=== PATIENT | male | born 1940 | race Caucasian/White ===

== ENCOUNTER 2023-01-22 10:01 | Day surgery (SDC) | payer OTHER, BC ==
[2023-01-19 10:26] LABS: Absolute Lymphocytes (CBC) 1.4 K/uL (0.7-4.9); Hematocrit 43.9 % (39.6-49.0); Lymphocytes % 27.2 % (15.3-44.8); MCV 94.2 fL (80-100); MPV 7.8 fL (7.6-11.3); RBC Red Blood Cell Count 4.66 M/uL (4.33-5.43)
[2023-01-19 10:43] LABS: Potassium 4.5 mmol/L (3.5-5.1)
--- NOTE | 2023-01-19 11:37 | RAD REPORT ---
EXAM DESCRIPTION: RAD - Chest Pa And Lat (2 Views) - 01/19/2023 10:18 am CLINICAL HISTORY: Pre op pending inguinal hernia repair COMPARISON: Chest Pa And Lat (2 Views) dated 04/01/2021; Chest Pa And Lat (2 Views) dated 03/24/2020 FINDINGS: Lines: None. Lungs: No evidence of edema or pneumonia. Pleural: No significant pleural effusions or pneumothorax. Cardiac: The heart size is within normal limits. Mediastinum: Within normal limits. Bones: No acute fractures. Bridging osteophytes in the spine. Other: None IMPRESSION: No acute cardiopulmonary disease.
--- NOTE | 2023-01-19 13:14 | EKG ---
Test Date: 2023-01-19 Test Time: 09:53:06 Electronic Equipment Repairer: DAT MEASUREMENT RESULTS: Intervals: Rate: 41 MA: 148 QRSD: 84 QT: 464 QTc: 382 [place]: P: 74 MA: 148 QRS: 68 T: 69 INTERPRETIVE STATEMENTS: Marked sinus bradycardia Abnormal ECG No previous ECG available for comparison Electronically Signed On 01-19-23 13:13:57 HOME HEALTH ATTENDANT by Lj Smith
[2023-01-22] MEDS ORDERED: Ringers Lactate 1,000 ML IV ONE (10:24)
[2023-01-22] MEDS ORDERED: propofoL 200 MG/20 ML VIAL IV ONE (10:26)
[2023-01-22] MEDS ORDERED: ONDANSETRON 4 MG/2 ML VIAL ONE (10:27)
[2023-01-22] MEDS ORDERED: ROCURONIUM 50 MG/5 ML VIAL IV ONE (10:27)
[2023-01-22] MEDS ORDERED: LIDOCAINE 2% MPF 5 ML VIAL ONE (10:27)
[2023-01-22] MEDS ORDERED: FENTANYL CITR 100 MCG/2 ML ONE (10:27)
[2023-01-22] MEDS: CEFAZOLIN SODIUM 1 GM/VIAL ONE ×2 (11:36→12:00)
[2023-01-22] MEDS ORDERED: GLYCOPYRROLATE 0.2 MG/ML SYR ONE (11:53)
[2023-01-22] MEDS ORDERED: EPHEDRINE SULF 50 MG/ML VIAL ONE (12:03)
[2023-01-22] MEDS ORDERED: KETOROLAC 30 MG/ML INJ ONE (12:48)
[2023-01-22] MEDS ORDERED: Mastisol Adhesive Liq ONE (12:50)
--- NOTE | 2023-01-22 13:38 | P.BOP ---
Preoperative diagnosis: Reducible tender right inguinal hernia Postoperative diagnosis: same Primary procedure: Laparoscopic repair of Reducible tender right inguinal hernia Supervisor Lamp Shades: Aleyda Hameed) Estimated blood loss: <10cc Specimen: none Findings: as above Anesthesia: General Complications: None Transferred to: Recovery Room Condition: Good
[2023-01-22] MEDS ORDERED: TAMSULOSIN 0.4 MG SR CAP PO ONE (14:15)
[2023-01-22] MEDS ORDERED: HYDROCODONE/APAP 7.5/325 MG TAB ONE (15:10)
[2023-01-22 15:35] VITALS: BP 131/63; O2SAT 100
[2023-01-22 15:36] VITALS: TEMP 97
== END 2023-01-22 15:25 | disposition home or self-care (01) ==
LOC: OR 10:01
PROVIDERS: ATTEND Surgery
PROC: 0YQ54ZZ Repair Right Inguinal Region, Percutaneous Endoscopic Approach (ICD-10-PCS; principal; 2023-01-22 12:00)
DX: K40.90 Unilateral inguinal hernia, without obstruction or gangrene, not specified as recurrent (principal); I51.9 Heart disease, unspecified
CPT/HCPCS: 36415; 71046; 80048; 85025; 93005; J0690; J2001; J2405; J2704; J3010; J7120

== ENCOUNTER 2023-09-15 12:01 | Emergency (ER) | payer OTHER, BC ==
--- OUTSIDE RECORDS SUMMARY | 2023-09-15 12:11 | XMS REPORT | Continuity of Care Document ---
:1940 Author Organization [facility] t Address [address] [place] [address]. [address] [place] [address] Care Team Providers Name Role Phone [phone] Primary Care Physician Unavailable ITZEL BUSTILLOS Attending Clinician Unavailable Gerda Prieto MD Attending Clinician KAYLEE CONTRERAS Attending Clinician Unavailable Kaylee Contreras MD Attending Clinician Oni Castellanos MD Attending Clinician RADIOLOGY Attending Clinician Unavailable PEPE PAGE Attending Clinician Unavailable Pepe Page MD Attending Clinician Sommer Crabtree CRNA Attending Clinician Mickie Roberts MD Attending Clinician Only, Adc Test Attending Clinician Unavailable Doctor Unassigned, [place] Walk Attending Clinician Unavailable VITO LANDAVERDE Attending Clinician Unavailable LISS MOODY Attending Clinician Unavailable EMMANUEL DICK Attending Clinician Unavailable ONI CASTELLANOS Admitting Clinician Unavailable PEPE PAGE Admitting Clinician Unavailable Pepe Page MD Admitting Clinician Payers Payer Name Policy Type Policy Number Effective Date Expiration Date S ource MEDICARE PART A AND [id number] 2006 B 00:00:00 BCBS NON CONTRACTED [id number] 2017 00:00:00 MEDICARE PART A \T\ [id number] 2006 B 00:00:00 BCBS TRADITIONAL [id number] 2017 00:00:00 Problems Condition Condition Condition Status Onset Resolution Last Treating Co mments Source Name Details Category Date Date Treatment Clinician Date Meralgia Meralgia Disease Active 2019-11 Metho di parestheti parestheti [address] [facility] of 00:00: Hospita right side right side 00 l Angina Angina Disease Active 2018-11 Methodi decubitus decubitus 2- st 00:00: Hospita 00 l Hyperlipid Hyperlipid Disease Active M ethodi emia LDL emia LDL 4- st goal <70 goal <70 00:00: Hospit a 00 l Paroxysmal Paroxysmal Disease Active M ethodi atrial atrial 4-29 st fibrillati fibrillati 00:00: Ho spita on on 00 l TIA TIA Disease Active Methodi (transient (transient 4-29 st ischemic ischemic 00:00: Hospit a attack) attack) 00 l No known No known Disease Unive rs active active ity of problems problems [facility] Branch Allergies, Adverse Reactions, Alerts Allergy Allergy Status Severity Reaction(s) Onset Inactive Treating Comm ents Source Name Type Date Date Clinician TRAMADOL DRUG Active Low Rash 2018-11 MD INGREDI 2-10 Anderso 00:00: n 00 Tramadol Propensi Active Rash 2018-11 Method i ty to 2-10 st adverse 00:00: Hospita reaction 00 l s to drug TRAMADOL DRUG Active Low Rash 2018-11 MD INGREDI 2-10 Anderso 00:00: n 00 TRAMADOL DRUG Active Low Rash 2018- MD INGREDI 2-10 Anderso 00:00: n 00 TRAMADOL DRUG Active Low Rash 2018- MD INGREDI 2-10 Anderso 00:00: n 00 TRAMADOL DRUG Active Low Rash 2018- MD INGREDI 2-10 Anderso 00:00: n 00 TRAMADOL DRUG Active Low Rash 2018- MD INGREDI 2-10 Anderso 00:00: n 00 TRAMADOL DRUG Active Low Rash 2018- MD INGREDI 2-10 Anderso 00:00: n 00 TRAMADOL DRUG Active Low Rash 2019-1 MD INGREDI 2-10 Anderso 00:00: n 00 TRAMADOL DRUG Active Low Rash 2019-1 MD INGREDI 2-10 Anderso 00:00: n 00 TRAMADOL DRUG Active Low Rash 2019-1 MD INGREDI 2-10 Anderso 00:00: n 00 TRAMADOL DRUG Active Low Rash 2019-1 MD INGREDI 2-10 Anderso 00:00: n 00 HYDROCOD DRUG Active Med Anxiety 2016-0 Univers ONE-ACET 5-17 ity of AMINOPHE 00:00: [place] N 00 Medical Branch Hydrocod Propensi Active Anxiety 2016-0 Unive rs one-Acet ty to 5-17 ity of aminophe adverse 00:00: [place] n reaction 00 Medical s Branch Hydrocod Propensi Active Anxiety 2016-0 Metho di one-Acet ty to 5-17 st aminophe adverse 00:00: Hospita n reaction 00 l s to drug HYDROCOD DRUG Active Med Nausea 2016-0 MD ONE-ACET 5-17 Anderso AMINOPHE 00:00: n N 00 HYDROCOD DRUG Active Med Nausea 2016-0 MD ONE-ACET 5-17 Anderso AMINOPHE 00:00: n N 00 HYDROCOD DRUG Active Med Nausea 2016-0 MD ONE-ACET 5-17 Anderso AMINOPHE 00:00: n N 00 HYDROCOD DRUG Active Med Nausea 2016-0 MD ONE-ACET 5-17 Anderso AMINOPHE 00:00: n N 00 HYDROCOD DRUG Active Med Nausea 2016-0 MD ONE-ACET 5-17 Anderso AMINOPHE 00:00: n N 00 HYDROCOD DRUG Active Med Nausea 2016-0 MD ONE-ACET 5-17 Anderso AMINOPHE 00:00: n N 00 HYDROCOD DRUG Active Med Nausea 2016-0 MD ONE-ACET 5-17 Anderso AMINOPHE 00:00: n N 00 HYDROCOD DRUG Active Med Nausea 2016-0 MD ONE-ACET 5-17 Anderso AMINOPHE 00:00: n N 00 HYDROCOD DRUG Active Med Nausea 2016-0 MD ONE-ACET 5-17 Anderso AMINOPHE 00:00: n N 00 HYDROCOD DRUG Active Med Nausea 2016-0 MD ONE-ACET 5-17 Anderso AMINOPHE 00:00: n N 00 HYDROCOD DRUG Active Med Nausea 2016-0 MD ONE-ACET 5-17 Anderso AMINOBIN 00:00: n N 00 Family History Family Member Diagnosis Comments Start Date Stop Date Source Natural father Diabetes [facility] Natural father Aneurysm [facility] Natural mother Heart failure [facility] Social History Social Habit Start Date Stop Date Quantity Comments Source History of tobacco Smokes tobacco Un iversity of use daily [facility] Sexual orientation Method ist Hospital Exposure to 2022-10-29 2022-11-08 Not sure University SARS-CoV-2 (event) 00:00:00 13:41:00 [facility] Alcohol intake 2022-09-19 2022-09-19 Current Islam 00:00:00 00:00:00 non-drinker of Hospital alcohol (finding) History of Social 2022-09-19 2022-09-[address] function 00:00:00 00:00:00 Hospital Tobacco use and 2019-01-28 2019-01-28 Smokeless Islam exposure 00:00:00 00:00:00 tobacco non-user Hospital Sex Ass[birth year] Islam 00:00:00 00:00:00 Hospital Smoking Status Start Date Stop Date Source Smokes tobacco daily 2022-09-07 00:00:00 Univers ity of [facility] Never smoked tobacco Islam H ospital Medications Ordered Filled Start Stop Current Ordering Indication Dosage Frequency Signature Comments Components Source Medication Medication Date Date Medication? Clinician (SIG) Name Name Mendezsara 10 Yes TAKE ONE Met hodi mg tablet 2-[address] 00:00: MOUTH Hospita 00 DAILY l rosuvastati 2021-11 Yes TAKE ONE Me thodi n (CRESTOR) 1-[address] 10 mg 00:00: MOUTH Hospita tablet 00 EVERY l NIGHT AT BEDTIME acetaminoph 2021-11 Yes 1{tbl} Take 1 Me thodi en (TYLENOL 1-[address] ARTHRITIS 08:51: mouth as Hosp vilma PAIN ORAL) 12 needed. l methylPREDN 2021-11 Yes [id number] 84mg Take 21 Univers ISolone 0-27 tablets by ity of (MEDROL, 00:00: mouth [place] HARDIK,) 4 mg 00 SEE-INSTRU [facility] follow package directions methylPREDN 2022-1 Yes [id number] 84mg Take 21 Univers ISolone 0-27 tablets by ity of (MEDROL, 00:00: mouth [place] HARDIK,) 4 mg 00 SEE-INSTRU Med ical tablets CTIONS. Branch follow package directions methylPREDN 2021-11 Yes [id number] 84mg Take 21 Univers ISolone 0-27 tablets by ity of (MEDROL, 00:00: mouth [place] HARDIK,) 4 mg 00 SEE-INSTRU Med ical tablets CTIONS. Branch follow package directions methylPREDN 2021-11 Yes [id number] 84mg Take 21 Univers ISolone 0-27 tablets by ity of (MEDROL, 00:00: mouth [place] HARDIK,) 4 mg 00 SEE-INSTRU Med ical tablets CTIONS. Branch follow package directions methylPREDN 2021-11 Yes [id number] 84mg Take 21 Univers ISolone 0-27 tablets by ity of (MEDROL, 00:00: mouth [place] HARDIK,) 4 mg 00 SEE-INSTRU Med ical tablets CTIONS. Branch follow package directions methylPREDN 2021-11 Yes [id number] 84mg Take 21 Univers ISolone 0-27 tablets by ity of (MEDROL, 00:00: mouth [place] HARDIK,) 4 mg 00 SEE-INSTRU Med ical tablets CTIONS. Branch follow package directions ePHEDrine 2021- No Slow IV Univ ers 25 mg/5 mL 05-24 Push, ONCE it y of (5 mg/mL) 15:43: 15:56 INTRA [place] syringe 00 :43 PROCEDURE, Medica l Starting Branch on Sun05/24/22 at 1043, Until Sun05/24/22 at 1056, Routine, Intra-op propofoL IV 2021- No Intravenou Univers infusion 05-24 s, ONCE ity of 15:36: 15:56 INTRA [place] 00 :43 PROCEDURE, Medical Starting Branch on Sun05/24/22 at 1036, Until Sun05/24/22 at 1056, Routine, Intra-op glycopyrrol 2021- No Intravenou Univers ate 05-24 s, ONCE ity of (ROBINUL) 15:35: 15:56 INTRA [place] injection 00 :43 PROCEDURE, Medi meg Starting Branch on Sun05/24/22 at 1035, Until Sun05/24/22 at 1056, Routine, Intra-op lidocaine 2021- No Intravenou U nivers 1% 05-24 s, ONCE ity of (XYLOCAINE) 15:32: 15:56 [place]TRA [place] 100 mg/10 00 :43 PROCEDURE, Medi meg mL (1 %) Starting Branch injection on Sun05/24/22 at 1032, Until Sun05/24/22 at 1056, Routine, Intra-op lactated 2021- No IV Univers ringers IV 05-24 Infusion, ity of infusion 15:29: 15:56 [place] :[place] PRN, Medical Starting Branch on Sun05/24/22 at 1029, Until Sun05/24/22 at 1056, Routine, Intra-op water for 2021- No PRN, Univers irrigation 05-24 Starting ity of irrigation 14:58: 15:59 [place] solution 00 :00 05/24/22 at Medic al 0958, Branch Until Sun05/24/22 at 1059, Routine, Intra-op simethicone 2021- No PRN, Unive rs (GAS RELIEF 05-24 Starting ity of (SIMETHICON 14:57: 15:59 on Sun [place] as E)) 40 00 :00 05/24/22 at Medical mg/0.6 mL 0957, Branch drops Until Sun05/24/22 at 1059, Routine, Intra-op lactated 2021- No 1000mL at 42 Unive rs ringers IV 05-24 mL/hr, ity of infusion 14:30: 15:01 1,000 mL, [place] as 1,000 mL 00 :00 IV Medical Infusion, Branch ONCE, 1 dose, On Sun05/24/22 at 0930, Routine, DSU Pre-op lactated 2021- No 1000mL at 42 Unive rs ringers IV 05-24 mL/hr, ity of infusion 14:30: 15:01 1,000 mL, [place] as 1,000 mL 00 :00 IV Medical Infusion, Branch ONCE, 1 dose, On Sun05/24/22 at 0930, Routine, DSU Pre-op rosuvastati 2022-0 Yes 10mg Take 10 mg Univers n 10 mg 7-13 by mouth ity of tablet 11:31: at [place] [address] bedtime. Medical Branch loratadine 0 Yes 10mg Take 10 mg U nivers 10 mg 7-13 by mouth ity of tablet 11:31: daily. As [place] [address] needed Medical Branch chol/gl/ser 0 Yes 1{dose} Take 1 U nivers /RNA/phen/p 7-13 Dose by ity o f rg/hb150 11:31: mouth 2 [place] ([place] (two) Medical FOCUS ORAL) times Branch daily. (Brainol) Zinc 50 mg 2021-0 Yes 50mg Take 50 mg U nivers Tab 7-13 by mouth ity of 11:31: daily. [place] [address] Medical Branch aspirin 81 2021-0 Yes 81mg Take 81 mg U nivers mg EC 7-13 by mouth. ity of tablet 11:31: [address] Branch acetaminoph 0 Yes 1{dose} Take 1 U nivers en (TYLENOL 7-13 Dose by ity o f ARTHRITIS 11:31: [place] PAIN ORAL[place] 57 needed. Medica l Branch rivaroxaban 0 Yes 10mg Take 10 mg Univers 10 mg 7-13 by mouth ity of tablet 11:31: daily. [place] [address] Medical Branch rosuvastati 0 Yes 10mg Take 10 mg Univers n 10 mg 7-13 by mouth ity of tablet 11:31: at [place] [address] bedtime. Medical Branch loratadine 0 Yes 10mg Take 10 mg U nivers 10 mg 7-13 by mouth ity of tablet 11:31: daily. As [place] [address] needed Medical Branch chol/gl/ser 0 Yes 1{dose} Take 1 U nivers /RNA/phen/p 7-13 Dose by ity o f rg/hb150 11:31: mouth 2 [place] ([place] (two) Medical FOCUS ORAL) times Branch daily. (Brainol) Zinc 50 mg 2021-0 Yes 50mg Take 50 mg U nivers Tab 7-13 by mouth ity of 11:31: daily. [place] [address] Medical Branch aspirin 81 2021-0 Yes 81mg Take 81 mg U nivers mg EC 7-13 by mouth. ity of tablet 11:31: [place] [address] Medical Branch acetaminoph Yes 1{dose} Take 1 U nivers en (TYLENOL 7-13 Dose by ity o f ARTHRITIS 11:31: mouth [place] PAIN [place]AL) 57 needed. Medica l Branch rivaroxaban 0 Yes 10mg Take 10 mg Univers 10 mg 7-13 by mouth ity of tablet 11:31: daily. [place] [address] Medical Branch rosuvastati 0 Yes 10mg Take 10 mg Univers n 10 mg 7-13 by mouth ity of tablet 11:31: at [place] [address] bedtime. Medical Branch loratadine Yes 10mg Take 10 mg U nivers 10 mg 7-13 by mouth ity of tablet 11:31: daily. As [place] [address] needed Medical Branch chol/gl/ser Yes 1{dose} Take 1 U nivers /RNA/phen/p 7-13 Dose by ity o f rg/hb150 11:31: mouth 2 [place] ([place] [address] (two) Medical FOCUS ORAL) times Branch daily. (Brainol) Zinc 50 mg Yes 50mg Take 50 mg U nivers Tab 7-13 by mouth ity of 11:31: daily. [place] [address] Medical Branch aspirin 81 0 Yes 81mg Take 81 mg U nivers mg EC 7-13 by mouth. ity of tablet 11:31: [place] [address] Medical Branch acetaminoph Yes 1{dose} Take 1 U nivers en (TYLENOL 7-13 Dose by ity o f ARTHRITIS 11:31: mouth [place] PAIN ORAL) 57 needed. Medica l Branch rivaroxaban 0 Yes 10mg Take 10 mg Univers 10 mg 7-13 by mouth ity of tablet 11:31: daily. [place] [address] Medical Branch rosuvastati Yes 10mg Take 10 mg Univers n 10 mg 7-13 by mouth ity of tablet 11:31: at [place] [address] bedtime. Medical Branch loratadine 0 Yes 10mg Take 10 mg U nivers 10 mg 7-13 by mouth ity of tablet 11:31: daily. As [place] [address] needed Medical Branch chol/gl/ser 0 Yes 1{dose} Take 1 U nivers /RNA/phen/p 7-13 Dose by ity o f rg/hb150 11:31: mouth 2 [place] ([facility] 57 (two) Medical FOCUS ORAL) times Branch daily. (Brainol) Zinc 50 mg 2021-0 Yes 50mg Take 50 mg U nivers Tab 7-13 by mouth ity of 11:31: daily. [address] Branch aspirin 81 2021-0 Yes 81mg Take 81 mg U nivers mg EC 7-13 by mouth. ity of tablet 11:31: [place] [address] Medical Branch acetaminoph Yes 1{dose} Take 1 U nivers en (TYLENOL 7-13 Dose by ity o f ARTHRITIS 11:31: mouth [place] PAIN [place]AL) 57 needed. Medica l Branch rivaroxaban 0 Yes 10mg Take 10 mg Univers 10 mg 7-13 by mouth ity of tablet 11:31: daily. [place] [address] Medical Branch rosuvastati Yes 10mg Take 10 mg Univers n 10 mg 7-13 by mouth ity of tablet 11:31: at [place] [address] bedtime. Medical Branch loratadine Yes 10mg Take 10 mg U nivers 10 mg 7-13 by mouth ity of tablet 11:31: daily. As [place] [address] needed Medical Branch chol/gl/ser Yes 1{dose} Take 1 U nivers /RNA/phen/p 7-13 Dose by ity o f rg/hb150 11:31: mouth 2 [place] ([facility] 57 (two) Medical FOCUS ORAL) times Branch daily. (Brainol) Zinc 50 mg 2021-0 Yes 50mg Take 50 mg U nivers Tab 7-13 by mouth ity of 11:31: daily. [address] aspirin 81 2021-0 Yes 81mg Take 81 mg U nivers mg EC 7-13 by mouth. ity of tablet 11:31: [place] [address] Medical Branch acetaminoph Yes 1{dose} Take 1 U nivers en (TYLENOL 7-13 Dose by ity o f ARTHRITIS 11:31: mouth [place] PAIN ORAL) 57 needed. Medica l Branch rivaroxaban 0 Yes 10mg Take 10 mg Univers 10 mg 7-13 by mouth ity of tablet 11:31: daily. [place] [address] Medical Branch rosuvastati 0 Yes 10mg Take 10 mg Univers n 10 mg 7-13 by mouth ity of tablet 11:31: at [place] [address] bedtime. Medical Branch loratadine 0 Yes 10mg Take 10 mg U nivers 10 mg 7-13 by mouth ity of tablet 11:31: daily. As [place] [address] needed Medical Branch chol/gl/ser 2021-0 Yes 1{dose} Take 1 U nivers /RNA/phen/p 7-13 Dose by ity o f rg/hb150 11:31: mouth 2 [place] ([place] (two) Medical FOCUS ORAL) times Branch daily. (Brainol) Zinc 50 mg 2021-0 Yes 50mg Take 50 mg U nivers Tab 7-13 by mouth ity of 11:31: daily. [place] [address] Medical Branch aspirin 81 2021-0 Yes 81mg Take 81 mg U nivers mg EC 7-13 by mouth. ity of tablet 11:31: [place] [address] Medical Branch acetaminoph 0 Yes 1{dose} Take 1 U nivers en (TYLENOL 7-13 Dose by ity o f ARTHRITIS 11:31: mouth [place] PAIN [place]AL) 57 needed. Medica l Branch rivaroxaban 0 Yes 10mg Take 10 mg Univers 10 mg 7-13 by mouth ity of tablet 11:31: daily. [place] [address] Medical Branch rosuvastati 0 Yes 10mg Take 10 mg Univers n 10 mg 7-13 by mouth ity of tablet 11:31: at [place] [address] bedtime. Medical Branch loratadine 0 Yes 10mg Take 10 mg U nivers 10 mg 7-13 by mouth ity of tablet 11:31: daily. As [place] [address] needed Medical Branch chol/gl/ser 0 Yes 1{dose} Take 1 U nivers /RNA/phen/p 7-13 Dose by ity o f rg/hb150 11:31: mouth 2 [place] ([facility] 57 (two) Medical FOCUS ORAL) times Branch daily. (Brainol) Zinc 50 mg 2021-0 Yes 50mg Take 50 mg U nivers Tab 7-13 by mouth ity of 11:31: daily. [place] [address] Medical Branch aspirin 81 2021-0 Yes 81mg Take 81 mg U nivers mg EC 7-13 by mouth. ity of tablet 11:31: [place] [address] Medical Branch acetaminoph 2022-0 Yes 1{dose} Take 1 U nivers en (TYLENOL 7-13 Dose by ity o f ARTHRITIS 11:31: mouth [place] PAIN [place]AL[place] 57 needed. [facility] Branch rivaroxaban Yes 10mg Take 10 mg Univers 10 mg 7-13 by mouth ity of tablet 11:31: daily. [place] [address] Medical Branch rosuvastati Yes 10mg Take 10 mg Univers n 10 mg 7-13 by mouth ity of tablet 11:31: at [place] [address] bedtime. Medical Branch loratadine Yes 10mg Take 10 mg U nivers 10 mg 7-13 by mouth ity of tablet 11:31: daily. As [place] [address] needed Medical Branch chol/gl/ser Yes 1{dose} Take 1 U nivers /RNA/phen/p 7-13 Dose by ity o f rg/hb150 11:31: mouth 2 [place] ([facility] 57 (two) Medical FOCUS ORAL) times Branch daily. (Brainol) Zinc 50 mg Yes 50mg Take 50 mg U nivers Tab 7-13 by mouth ity of 11:31: daily. [place] [address] Medical Branch aspirin 81 Yes 81mg Take 81 mg U nivers mg EC 7-13 by mouth. ity of tablet 11:31: [place] [address] Medical Branch acetaminoph Yes 1{dose} Take 1 U nivers en (TYLENOL 7-13 Dose by ity o f ARTHRITIS 11:31: mouth as [place] PAIN ORAL) 57 needed. [facility] Branch rivaroxaban Yes 10mg Take 10 mg Univers 10 mg 7-13 by mouth ity of tablet 11:31: daily. [place] [address] Medical Branch acetaminoph Yes 1{dose} Take 1 U nivers en (TYLENOL 7-13 Dose by ity o f ARTHRITIS 10:59: mouth [place] PAIN ORAL) 00 needed. [facility] l Branch rivaroxaban Yes 10mg Take 10 mg Univers 10 mg 7-13 by mouth ity of tablet 10:59: daily. [place] Medical Branch rosuvastati Yes 10mg Take 10 mg Univers n 10 mg 7-13 by mouth ity of tablet 10:59: at [place] 00 bedtime. Medical Branch loratadine 2022-0 Yes 10mg Take 10 mg U nivers 10 mg 7-13 by mouth ity of tablet 10:59: daily. As [place] 00 needed Medical Branch chol/gl/ser 2021-0 Yes 1{dose} Take 1 U nivers /RNA/phen/p 7-13 Dose by ity o f rg/hb150 10:59: mouth 2 [place] ([facility] 00 (two) Medical FOCUS ORAL) times Branch daily. (Brainol) Zinc 50 mg 2021-0 Yes 50mg Take 50 mg U nivers Tab 7-13 by mouth ity of 10:59: daily. [place] 00 Medical Branch aspirin 81 2021-0 Yes 81mg Take 81 mg U nivers mg EC 7-13 by mouth. ity of tablet 09:04: [place] 20 Medical Branch Zinc 50 mg 2021-0 Yes 50mg Take 50 mg U nivers Tab 7-06 by mouth ity of 15:28: daily. [place] 35 [facility] Branch Zinc 50 mg 2021-0 Yes 50mg Take 50 mg U nivers Tab 7-06 by mouth ity of 15:28: daily. [place] 35 Medical Branch chol/gl/ser 2021-0 Yes 1{dose} Take 1 U nivers /RNA/phen/p 7-06 Dose by ity o f rg/hb150 15:10: mouth 2 [place] ([facility] 56 (two) Medical FOCUS ORAL) times Branch daily. (Brainol) chol/gl/ser 2021-0 Yes 1{dose} Take 1 U nivers /RNA/phen/p 7-06 Dose by ity o f rg/hb150 15:10: mouth 2 [place] ([facility] 56 (two) Medical FOCUS ORAL) times Branch daily. (Brainol) rosuvastati 2021-0 Yes 10mg Take 10 mg Univers n 10 mg 7-06 by mouth ity of tablet 15:09: at [place] [address] bedtime. Medical Branch loratadine 2021-0 Yes 10mg Take 10 mg U nivers 10 mg 7-06 by mouth ity of tablet 15:09: daily. As [place] 52 needed Medical Branch rosuvastati 2021-0 Yes 10mg Take 10 mg Univers n 10 mg 7-06 by mouth ity of tablet 15:09: at [place] [address] bedtime. Medical Branch loratadine 2021-0 Yes 10mg Take 10 mg U nivers 10 mg 7-06 by mouth ity of tablet 15:09: daily. As [place] 52 needed Medical Branch acetaminoph Yes 1{dose} Take 1 U nivers en (TYLENOL 7-06 Dose by ity o f ARTHRITIS 15:09: mouth as [place] PAIN ORAL) 51 needed. Medica l Branch rivaroxaban Yes 10mg Take 10 mg Univers (XARELTO) 7-06 by mouth ity of 10 mg 15:09: daily. [place] tablet 51 Medical Branch acetaminoph Yes 1{dose} Take 1 U nivers en (TYLENOL 7-06 Dose by ity o f ARTHRITIS 15:09: mouth as [place] PAIN ORAL) 51 needed. Medica l Branch rivaroxaban Yes 10mg Take 10 mg Univers (XARELTO) 7-06 by mouth ity of 10 mg 15:09: daily. [facility] 51 [facility] Branch aspirin 81 Yes 81mg Take 81 mg U nivers mg EC 7-06 by mouth. ity of tablet 15:04: [place] 01 [facility] aspirin 81 Yes 81mg Take 81 mg U nivers mg EC 7-06 by mouth. ity of tablet 15:04: [address] Xarelto 10 2020-11- No TAKE 1 Meth danielle mg tablet 01-03 TABLET( 00:00: 00:00 MG) BY Hospita 00 :00 MOUTH l DAILY rosuvastati 2021- No TAKE 1 Met hodi n (CRESTOR) 08-[address] 10 mg 00:00: 00:00 MOUTH Hospita tablet 00 :00 EVERY l NIGHT Xarelto 10 2019-11- No TAKE 1 Meth danielle mg tablet 12-11- TABLET( 00:00: 00:00 MG) BY Hospita 00 :00 MOUTH l DAILY aspirin 81 Yes 81mg Take 81 mg U nivers mg EC 4-15 by mouth. ity of tablet 13:35: [address] methylPREDN Yes [id number] 84mg Take 21 Univers ISolone 4-15 9100 tablets by ity of (MEDROL, 00:00: mouth [place] HARDIK,) 4 mg 00 SEE-INSTRU Med ical tablets CTIONS. Branch follow package directions methylPREDN 2018-0 Yes [id number] 84mg Take 21 Univers ISolone 4-15 9100 tablets by ity of (MEDROL, 00:00: mouth [place] HARDIK,) 4 mg 00 SEE-INSTRU Med ical tablets CTIONS. Branch follow package directions methylPREDN 0 Yes [id number] 84mg Take 21 Univers ISolone 4-15 9100 tablets by ity of (MEDROL, 00:00: mouth [place] HARDIK,) 4 mg 00 SEE-INSTRU Med ical tablets CTIONS. Branch follow package directions methylPREDN Yes [id number] 84mg Take 21 Univers ISolone 4-15 9100 tablets by ity of (MEDROL, 00:00: mouth [place] HARDIK,) 4 mg 00 SEE-INSTRU Med ical tablets CTIONS. Branch follow package directions methylPREDN Yes [id number] 84mg Take 21 Univers ISolone 4-15 9100 tablets by ity of (MEDROL, 00:00: mouth [place] HARDIK,) 4 mg 00 SEE-INSTRU Med ical tablets CTIONS. Branch follow package directions methylPREDN Yes [id number] 84mg Take 21 Univers ISolone 4-15 9100 tablets by ity of (MEDROL, 00:00: mouth [place] HARDIK,) 4 mg 00 SEE-INSTRU Med ical tablets CTIONS. Branch follow package directions methylPREDN Yes [id number] 84mg Take 21 Univers ISolone 4-15 9100 tablets by ity of (MEDROL, 00:00: mouth [place] HARDIK,) 4 mg 00 SEE-INSTRU Med ical tablets CTIONS. Branch follow package directions methylPREDN 0 Yes [id number] 84mg Take 21 Univers ISolone 4-15 9100 tablets by ity of (MEDROL, 00:00: mouth [place] HARDIK,) 4 mg 00 SEE-INSTRU Med ical tablets CTIONS. Branch follow package directions methylPREDN 0 Yes [id number] 84mg Take 21 Univers ISolone 4-15 9100 tablets by ity of (MEDROL, 00:00: mouth [place] HARDIK,) 4 mg 00 SEE-INSTRU Med ical tablets CTIONS. Branch follow package directions methylPREDN 2018-0 Yes [id number] 84mg Take 21 Univers ISolone 4-15 9100 tablets by ity of (MEDROL, 00:00: mouth [place] HARDIK,) 4 mg 00 SEE-INSTRU Med ical tablets CTIONS. Branch follow package directions methylPREDN 2019-0 Yes [id number] 84mg Take 21 Univers ISolone 4-15 9100 tablets by ity of (MEDROL, 00:00: mouth [place] HARDIK,) 4 mg 00 SEE-INSTRU Med ical tablets CTIONS. Branch follow package directions methylPREDN 2019-0 Yes [id number] 84mg Take 21 Univers ISolone 4-15 9100 tablets by ity of (MEDROL, 00:00: mouth [place] HARDIK,) 4 mg 00 SEE-INSTRU Med ical tablets CTIONS. Branch follow package directions fluorouraci Yes 1{dose} Apply 1 Univers L 5 % cream 6-24 Dose to ity o f 00:00: area(s) as [place] 00 needed. Medical Branch fluorouraci Yes 1{dose} Apply 1 Univers L 5 % cream 6-24 Dose to ity o f 00:00: area(s) as [place] 00 needed. Medical Branch fluorouraci Yes 1{dose} Apply 1 Univers L 5 % cream 6-24 Dose to ity o f 00:00: area(s) as [place] 00 needed. Medical Branch fluorouraci Yes 1{dose} Apply 1 Univers L 5 % cream 6-24 Dose to ity o f 00:00: area(s) as [place] 00 needed. Medical Branch fluorouraci Yes 1{dose} Apply 1 Univers L 5 % cream 6-24 Dose to ity o f 00:00: area(s) as [place] 00 needed. Medical Branch fluorouraci Yes 1{dose} Apply 1 Univers L 5 % cream 6-24 Dose to ity o f 00:00: area(s) as [place] 00 needed. Medical Branch fluorouraci 2015- Yes 1{dose} Apply 1 Univers L 5 % cream 6-24 Dose to ity o f 00:00: area(s) as [place] 00 needed. Medical Branch fluorouraci Yes 1{dose} Apply 1 Univers L 5 % cream 6-24 Dose to ity o f 00:00: area(s) as [place] 00 needed. Medical Branch fluorouraci 2016-0 Yes 1{dose} Apply 1 Univers L 5 % cream 6-24 Dose to ity o f 00:00: area(s) as [place] 00 needed. Medical Branch fluorouraci 2016-0 Yes 1{dose} Apply 1 Univers L 5 % cream 6-24 Dose to ity o f 00:00: area(s) as [place] 00 needed. Medical Branch fluorouraci 2015-0 Yes 1{dose} Apply 1 Univers L 5 % cream 6-24 Dose to ity o f 00:00: area(s) as [place] 00 needed. Medical Branch Vital Signs Vital Name Observation Time Observation Value Comments Source Systolic blood 2022-11-08 19:47:00 123 mm[Hg] Univer sity of pressure [facility] Diastolic blood 2022-11-08 19:47:00 76 mm[Hg] Unive rsity of pressure [facility] Heart rate 2022-11-08 19:47:00 64 /min [facility] [place] [facility] [place] Body height 2022-11-08 19:47:00 193 cm [facility] [place] [facility] Body weight 2022-11-08 19:47:00 89.721 kg Universi ty [facility] [place] [facility] Medical Branch BMI 2022-11-08 19:47:00 24.08 kg/m2 Universi ty [facility] Branch Oxygen saturation in 2022-11-08 19:47:00 99 /min University of Arterial blood by [facility] Pulse oximetry Branch Body height 2022-09-07 14:21:00 193 cm [facility] [place] [facility] Body weight 2022-09-07 14:21:00 90.719 kg [facility] [place] [facility] BMI 2022-09-07 14:21:00 24.34 kg/m2 Universi ty [facility] [place] [facility] Medical Branch Heart rate 2022-05-24 16:16:00 52 /min Universi ty of [facility] Branch Respiratory rate 2022-05-24 16:16:00 16 /min Univ ersity of [facility] Branch Oxygen saturation in 2022-05-24 16:16:00 100 /min University of Arterial blood by [facility] Pulse oximetry Branch Systolic blood 2022-05-24 16:15:00 118 mm[Hg] Univer sity of pressure [facility] Branch Diastolic blood 2022-05-24 16:15:00 67 mm[Hg] Unive rsity of pressure [facility] Body temperature 2022-05-24 16:01:00 36.39 Yvonne Univ ersity of [facility] Body height 2022-05-22 12:20:00 193 cm Universi ty of [facility] Body weight 2022-05-22 12:20:00 89.4 kg [facility] [place] [facility] [place] BMI 2022-05-22 12:20:00 24.00 kg/m2 Universi ty [facility] Heart rate 2022-05-24 16:00:00 56 /min Universi ty of [facility] Oxygen saturation in 2022-05-24 16:00:00 99 /min University Arterial blood by [facility] Pulse oximetry [place] Systolic blood 2022-05-24 14:09:00 118 mm[Hg] Univer sity of [facility] Diastolic blood 2022-05-24 14:09:00 71 mm[Hg] Unive rsity of [facility] Body temperature 2022-05-24 14:09:00 36.5 Yvonne [facility] Respiratory rate 2022-05-24 14:09:00 16 /min Univ ersity of [facility] Body height 2022-05-22 12:20:00 193 cm Universi ty of [facility] Body weight 2022-05-22 12:20:00 89.4 kg Universi ty of [facility] BMI 2022-05-22 12:20:00 24.00 kg/m2 Universi ty [facility] Respiratory rate 2022-05-24 15:55:00 21 /min Univ ersity of [facility] WEIGHT 2020-06-14 12:23:51 101.3 kg Systolic blood 2022-09-18 14:30:00 124 mm[Hg] Method ist [facility] pressure Diastolic blood 2022-09-18 14:30:00 61 mm[Hg] [facility] pressure Heart rate 2022-09-18 14:30:00 48 /min [facility] Respiratory rate 2022-09-18 14:30:00 17 /min [facility] Oxygen saturation in 2022-09-18 14:30:00 98 /min [facility] Arterial blood by Pulse oximetry Body temperature 2022-09-18 13:55:00 36.28 Yvonne [facility] Body height 2022-09-18 12:04:00 193 cm [facility] Body weight 2022-09-18 12:04:00 99.791 kg [facility] BMI 2022-09-18 12:04:00 26.78 kg/m2 [facility] Procedures Procedure Date / Time Performing Clinician Source Performed EP SUBCUTANEOUS CARDIAC 2022-09-18 13:40:30 Oni Castellanos [facility] RHYTHM MONITOR REMOVAL COLONOSCOPY (ENDO) 2022-05-24 15:30[facility]-05-24 15:30[facility] 2022-05-24 15:19:00 Pepe Page [facility] ASSIGNMENT OF BENEFITS 2022-05-23 14:28:31 Doctor Unassigned, No [facility] Name Medical Branch EXTERNAL PROVIDER 2022-04-20 05:01:00 Doctor Unassigned, No [facility] Medical Branch EXTERNAL PROVIDER 2022-04-03 05:01:00 Doctor Unassigned, No [facility] Name Medical Branch EXTERNAL PROVIDER 2022-04-03 05:01:00 Doctor Unassigned, No [facility] Plan of Care Planned Activity Planned Date Details Comments Source Future Scheduled 2023-09-06 65+ PNEUMOCOCCAL [facility] Test 21:02:05 VACCINE (1 - PCV) [code = 65+ PNEUMOCOCCAL VACCINE (1 - PCV)] Future Scheduled 2023-09-06 SHINGLES VACCINES (1 Met [facility] Test 21:02:05 of 2) [code = SHINGLES VACCINES (1 of 2)] Future Scheduled 2023-09-06 COVID-19 VACCINE (4 - [facility] Test 21:02:05 season) [code = COVID-19 VACCINE (4 - season)] Future Scheduled 2023-09-06 INFLUENZA VACCINE (#1) [facility] Test 21:02:05 [code = INFLUENZA VACCINE (#1)] Encounters Start End Encounter Admission Attending Care Care Encounter Source Date/Time Date/Time Type Type Clinicians Facility Department ID 2023-05-01 2023-05-01 Outpatient MILLIE BUSTILLOS [facility] [id number] 09:34:36 13:49:20 ITZEL angel 2023-03-13 2023-03-13 Outpatient MILLIE BUSTILLOS MDA MDA [id number] 11:41:30 14:01:44 ITZEL angel 2022-12-19 2022-12-19 RefGerda Dorantes 1.2.840.1 [id number] Methodi 00:00:00 00:00:[address] 3.430.2.7 Hospit a .3.370632 l .8 2022-11-08 2022-11-08 [facility] [id number] Univers 14:00:00 16:06:23 KAYLEE [facility] 2022-11-08 2022-11-08 Office [facility] [id number] Univers 14:00:00 16:06:23 Visit [facility] [id number] it y of [place] 4.2.7.2.686 [place] as JULIANNA?BLEA [id number] [address] OFFICE [facility] 2022-10-23 2022-10-23 Telephone [facility] 1.2.840.114 [id number] [facility] 00:00:00 00:00:00 [facility] 350.1.13.10 it y of [place] 4.2.7.2.686 [place] as JULIANNA?BLEA [phone] [address] OFFICE [facility] 2022-09-19 2022-09-19 Refill Gerda Prieto 1.2.840.1 [id number] Methodi 00:00:00 00:00:[address] 3.430.2.7 Hospit a .3.111709 l .8 2022-09-18 2022-09-18 [facility] 1.2.840.1 [id number] Methodi 05:23:00 08:49:00 Encounter Oni Busby 05238.1.[address] 3.430.2.7 Hospit a .3.408104 l .8 2022-09-18 2022-09-18 Surgery Emanuel, 1.2.840.1 [id number] Methodi 07:00:00 08:10:[address] 3.430.2.7 Hospit a .3.237645 l .8 2022-09-18 2022-09-[address] [facility] [id number] [place] 00:00:00 00:00:[address] 2022-09-18 2022-09-18 Travel 1.2.840.1 [id number] [id number] Methodi 00:00:00 00:00:[address] 3.430.2.7 0.2.7.3.698 Ho spita .3.454490 084.8 l .8 2022-09-07 2022-09-07 Outpatient R [facility] [id number] Univers 09:25:00 23:59:00 KAYLEE bailon [facility] 2022-09-07 2022-09-07 Office [facility] 1.2.401.402 [id number] Univers 09:15:00 10:06:30 Visit [facility] 350.1.13.10 it y of [place] 4.2.7.2.686 [place] as JULIANNA?BLEA [phone] [address] MEDICAL OFFICE BUILDING 2022-08-24 2022-08-24 Outpatient R RADIOLOGY [facility] [id number] Univers 00:00:00 00:00:00 uvaldo [facility] 2022-05-24 2022-05-24 Outpatient R [facility] [id number] Univers 08:55:00 11:27:00 PEPE Ch f [facility] 2022-05-24 2022-05-24 [facility] 1.2.840.114 [id number] Univers 08:55:00 11:27:00 Encounter Pepe ch 350.1.13.10 [place] [id number] [facility] 071 Branch 2022-05-24 2022-05-24 Surgery [facility] 1.2.840.114 [id number] Univers 10:24:00 11:00:00 Pepe ch 350.1.13.10 [place] [id number] [facility] 020 Branch 2022-05-24 2022-05-24 Anesthesia Sommer Crabtree [facility] 1.2.840 .114 [id number] Univers 10:29:00 10:56:00 Event Mickie Roberts 350.1.13.10 [facility] [place] [id number] [facility] 020 Branch 2022-05-23 2022-05-23 Laboratory Only, Adc Test [facility] 1.2.840. 114 [id number] Univers 09:15:00 09:30:00 Only Pepe Page 350.1.1 3.10 [place] [id number] [facility] 353 Branch 2022-05-23 2022-05-23 Outpatient R [facility] [id number] Univers 09:15:00 09:15:00 PEPE Ch o f [facility] 2022-05-23 2022-05-23 Orders Doctor LORENZ 1.2.840.114 [id number] Univers 00:00:00 00:00:00 Only UnassignedEMILI 350.1.13.10 ity of [place] [facility] 4.2.7.2.686 [place] [id number] [facility] 009 Branch 2022-04-20 2022-04-20 Orders Doctor LORENZ 1.2.840.114 [id number] Univers 00:00:00 00:00:00 Only UnassignedEMILI 350.1.13.10 ity [place] [facility] 4.2.7.2.686 [place] [id number] [facility] 009 Branch 2022-02-13 2022-02-13 Outpatient EL SAIMA, MDA MDA [id number] 12:37:02 14:18:34 VITO angel 2022-02-13 2022-02-13 Outpatient EL DIEJOHN, MDA MDA [id number] 09:38:30 09:38:30 LISS angel 2021-02-05 2021-02-05 Outpatient GIULIANACRYSTAL, MDA MDA [id number] 10:15:20 10:15:20 EMMANUEL angel 2021-01-11 2021-01-11 Outpatient EL SAIMA, MDA MDA [id number] 15:06:59 15:06:59 VITO angel 2020-10-20 2020-10-20 Outpatient MILILE BUSTILLOS, MDA MDA [id number] 11:43:41 15:34:20 ITZEL angel 2020-09-22 2020-09-22 Outpatient GERDA PRIETO [facility] [id number] [place] 00:00:00 00:00:[address] 2020-09-21 2020-09-21 Outpatient EL APOLLO, MDA MDA [id number] 14:15:12 15:12:16 ITZEL angel 2020-06-14 2020-06-14 Outpatient SAIMA, MDA MDA [id number] 12:20:05 15:01:11 VITO angel 2020-06-14 2020-06-14 Outpatient EL DIEJOHN, MDA MDA [id number] 10:10:50 10:10:50 LISS angel Results This patient has no known results.
[2023-09-15] MEDS ORDERED: LIDOCAINE 1% MPF 5 ML VIAL ONE ×2 (13:02→14:23)
[2023-09-15] MEDS ORDERED: TDAP (DIPHTH,PERTUSS(ACELL),TET VAC) 0.5 ML VIAL IMVAC ONE (13:03)
[2023-09-15] MEDS ORDERED: IBUPROFEN 200 MG TAB PO ONE (13:13)
--- NOTE | 2023-09-15 14:12 | RAD REPORT ---
EXAM DESCRIPTION: RAD - Hand Right 3 View - 09/15/2023 2:03 pm CLINICAL HISTORY: right 5th finger injury COMPARISON: No comparisons FINDINGS/IMPRESSION: No acute fracture. No malalignment. Interphalangeal joint space narrowing. Mild degenerative changes at the base of the thumb. No radiopaque foreign body.
--- NOTE | 2023-09-15 14:57 | EDPHYS ---
Physician Documentation [facility] Name: Roscoe Fuentes Age: 82 yrs Sex: Male : 1940 Arrival Date: 09/15/2023 Time: 12:01 Bed 10 Private MD: ED Physician Sudeep Johnson HPI: 09/15 13:39 This 82 yrs old Male presents to ER via Ambulatory with complaints of Finger Injury, rn Laceration. 13:39 Mechanism of injury: Crush injury:. Associated injuries: The patient sustained Right rn fifth digit of hand. Onset: The symptoms/episode began/occurred just prior to arrival. The patient has not experienced similar symptoms in the past. Patient reports doing yard work when a limb fell and crushed his finger, right hand fifth digit, while grabbing steering wheel. Reports isolated injury/laceration to the volar surface right fifth finger.. Historical: - Allergies: 12:39 Hydrocodone-Acetaminophen; constipation; iw 12:39 Tramadol HCl; rash; iw - Immunization history:: Last tetanus immunization: unknown. - Family history:: not pertinent. - Social history:: Smoking status: unknown. - Hospitalizations: : No recent hospitalization is reported. ROS: 13:40 Constitutional: Negative for fever, chills, and weight loss, MS/Extremity: Positive for rn injury and laceration to right fifth finger Exam: 13:40 Constitutional: This is a well developed, well nourished patient who is awake, alert, rn and in no acute distress. MS/ Extremity: Pulses equal, no cyanosis. Neurovascular intact. Full, normal range of motion. 2.5 cm irregularly-shaped laceration involving the mid right fifth finger. No active bleeding. Able to flex and extend affected finger easily. No bony tenderness. Vital Signs: 12:40 BP 109 / 66; Pulse 54; Resp 16; Temp 98.1; Pulse Ox 99% on R/A; iw Laceration: 14:53 Wound Repair of 2.5cm ( 1.0in ) subcutaneous laceration to right 5th finger. Distal rn neuro/vascular/tendon intact. Anesthesia: Digital block administered with 3 mls of 1% lidocaine. Wound prep: Extensive cleansing by ma, Wound irrigation, Wound explored. Skin closed with 7 5-0 Prolene using interrupted sutures and sterile technique. Dressed with 4x4's. Patient tolerated well. MDM: 12:27 Patient medically screened. rn 14:53 Differential diagnosis: Finger fracture, laceration. Data reviewed: vital signs, nurses rn notes, radiologic studies, plain films, and as a result, I will discharge patient. Independent interpretation of the following test(s) in the Emergency Department X-Ray: My interpretation is X-ray right hand negative for acute fracture or foreign body per my interpretation. Counseling: I had a detailed discussion with the patient and/or guardian regarding the historical points, exam findings, and any diagnostic results supporting the discharge/admit diagnosis, the need for outpatient follow up, to return to the emergency department if symptoms worsen or persist or if there are any questions or concerns that arise at home. Response to treatment: the patient's symptoms have markedly improved after treatment, and as a result, I will discharge patient. Special discussion: I discussed with the patient/guardian in detail that at this point there is no indication for admission to the hospital. It is understood, however, that if the symptoms persist or worsen the patient needs to return immediately for re-evaluation. 09/15 12:32 Order name: XRAY Hand RIGHT 3 View; Complete Time: 14:47 iw 09/15 12:32 Order name: Suture Tray at Bedside; Complete Time: 12:53 iw Administered Medications: 12:54 Drug: Tetanus Toxoid,Adsorbed IM 0.5 ml IM once; Provide Vaccine Information Statement iw (VIS). {Clinical Material Handler: [employer]; Exp: Sat Apr 04 2025; Lot #: [id number]; Series: 1 of 1; Patient Consent: Obtained; Date/Time: ; Source Name: Roscoe Fuentes; Source Relationship: Self; Address Information: [address] [address]; ; Education: Provided; VIS Presented Date: ; VIS Publication: Tetanus/Diphtheria/Pertussis (Tdap/Td) VIS 12/05/2011 (historic)} Route: IM; Site: left deltoid; 13:30 Follow up: Response: No adverse reaction iw 13:02 Drug: Ibuprofen PO 600 mg PO once Route: PO; iw 13:40 Follow up: Response: No adverse reaction iw 13:30 Drug: Lidocaine Infiltration (1 %) 1 vials 5 ml Infiltration once; to bedside {Note: iw admin by Cher MCKEON.} Volume: 5 ml; Route: Infiltration; Disposition Summary: 09/15/23 14:56 Discharge Ordered Notes: Location: Home rn Problem: new rn Symptoms: have improved rn Condition: Stable rn Diagnosis - Contusion of right little finger without damage to nail rn - Laceration without foreign body of right little finger with damage to nail, initial rn encounter Followup: rn - With: Private Physician - When: As needed - Reason: Recheck today's complaints, Re-evaluation by your physician Discharge Instructions: - Discharge Summary Sheet rn - Laceration Care, Adult rn Forms: - Medication Reconciliation Form rn - Thank You Letter rn - Antibiotic die turner - Prescription Opioid Use rn - Patient Portal Instructions rn - Leadership Thank You Letter rn Prescriptions: - Augmentin 875-125 mg Oral Tablet - take 1 tablet ORAL route every 12 hours for 10 days; 20 tablet; Refills: 0, rn Product Selection Permitted Signatures: Dispatcher [employer] Sommer Darnell RN RN Sudeep Gray MD MD rn
--- NOTE | 2023-09-15 14:57 | ER ---
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 Coronavirus screen: At this time, the client does not indicate any symptoms associated with coronavirus-19. Ebola Screen: Patient negative for fever greater than or equal to 101.5 degrees Fahrenheit, and additional compatible Ebola Virus Disease symptoms Patient denies exposure to infectious person. Patient denies travel to an Ebola-affected area in the 21 days before illness onset. No symptoms or risks identified at this time. Initial Sepsis Screen: Does the patient meet any 2 criteria? No. Patient's initial sepsis screen is negative. Does the patient have a suspected source of infection? No. Patient's initial sepsis screen is negative. Risk Assessment: Do you want to hurt yourself or someone else? Patient reports no desire to harm self or others. Onset of symptoms was September 15, 2023. 12:38 Method Of Arrival: Ambulatory iw 12:38 Acuity: INES 3 iw Triage Assessment: 15:00 General: Appears in no apparent distress. Behavior is calm, cooperative. Injury iw Description: Laceration sustained to palmar aspect of proximal phalanx of left little finger and palmar aspect of middle phalanx of left little finger and palmar aspect of distal phalanx of left little finger. 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 - Family history:: not pertinent. - Social history:: Smoking status: unknown. - Hospitalizations: : No recent hospitalization is reported. Screenin:25 [facility] ED Fall Risk Assessment (Adult) Score/Fall Risk Level 0 - 2 = Low Risk. Abuse iw screen: Denies threats or abuse. Denies injuries from another. Nutritional screening: No deficits noted. Tuberculosis screening: No symptoms or risk factors identified. Assessment: 13:00 General: Appears in no apparent distress. Behavior is calm, cooperative. Pain: iw Complains of pain in left hand. Neuro: Level of Consciousness is awake, alert, obeys commands, Oriented to person, place, time, situation, Moves all extremities. Musculoskeletal: Range of motion: intact in all extremities. Injury Description: Laceration sustained to palmar aspect of distal phalanx of left little finger, palmar aspect of middle phalanx of left little finger and palmar aspect of proximal phalanx of left little finger is full thickness, jagged, 0.5 to 2.5 cm long, was sustained 30-60 minutes ago. a small amount of bleeding noted at this time. Vital Signs: 12:40 BP 109 / 66; Pulse 54; Resp 16; Temp 98.1; Pulse Ox 99% on R/A; iw ED Course: 12:06 Patient arrived in ED. ts1 12:27 Sudeep Johnson MD is Attending Physician. rn 12:39 Triage completed. iw 12:40 Arm band placed on. iw 12:47 Sommer Trent, RN is Primary Nurse. iw 13:00 Patient has correct armband on for positive identification. Provided Education on: . iw 14:00 Assist provider with laceration repair. Patient did not have IV access during this iw emergency room visit. 14:05 XRAY Hand RIGHT 3 View In Process Unspecified. EDMS Administered Medications: 12:54 Drug: Tetanus Toxoid,Adsorbed IM 0.5 ml IM once; Provide Vaccine Information Statement iw (VIS). {Pump And Still Operator: [employer]; Exp: Sat Apr 04 2025; Lot #: [id number]; Series: 1 of 1; Patient Consent: Obtained; Date/Time: ; Source Name: Roscoe Fuentes; Source Relationship: Self; Address Information: [address] [place] [id number]; ; Education: Provided; VIS Presented Date: ; VIS Publication: Tetanus/Diphtheria/Pertussis (Tdap/Td) VIS 12/05/2011 (historic)} Route: IM; Site: left deltoid; 13:30 Follow up: Response: No adverse reaction iw 13:02 Drug: Ibuprofen PO 600 mg PO once Route: PO; iw 13:40 Follow up: Response: No adverse reaction iw 13:30 Drug: Lidocaine Infiltration (1 %) 1 vials 5 ml Infiltration once; to bedside {Note: iw admin by Cher MANCIA} Volume: 5 ml; Route: Infiltration; Medication: 14:00 Vaccine Information Statement (VIS) provided today. Questions and/or concerns iw addressed. VIS edition date: 2020. Outcome: 14:56 Discharge ordered by . rn 15:26 Discharged to home ambulatory, with significant other, iw 15:26 Condition: good 15:26 Discharge instructions given to patient, Instructed on discharge instructions, follow up and referral plans. medication usage, Demonstrated understanding of instructions, follow-up care, medications, wound care, Prescriptions given X 1, 15:27 Patient left the ED. iw Signatures: Dispatcher [employer] EDMS Sommer Trent RN RN iw Nieto, Roman, MD MD rn Simpson, Tanya, ZURI PAS ts1
[2023-09-15 15:33] VITALS: BP 109/66; TEMP 98.1; O2SAT 99
== END 2023-09-15 15:27 | disposition home or self-care (01) ==
LOC: ER 12:01
PROC: 0HQFXZZ Repair Right Hand Skin, External Approach (ICD-10-PCS; principal; 2023-09-15)
DX: S67.196A Crushing injury of right little finger, initial encounter (principal); S61.316A Laceration without foreign body of right little finger with damage to nail, initial encounter; Z23 Encounter for immunization; Z88.5 Allergy status to narcotic agent
CPT/HCPCS: 73130; 90471; 99284; 12001; J2001 ×2